=== PATIENT | female | born 1985 | race African-American/Black ===

== ENCOUNTER 2021-03-01 18:17 | Emergency (ER) | payer OTHER ==
[~2021-03-01] VITALS: Ht 157.5 cm; Wt 61.2 kg
[2021-03-01 18:37] VITALS: BP 107/74
[2021-03-01] MEDS ORDERED: IPRATROPIUM BROM 0.5 MG/2.5ML INH SOL NEB ONE (19:45)
[2021-03-01] MEDS ORDERED: ALBUTEROL SULF 2.5 MG/0.5ML(0.5%) NEB SOLN NEB ONE (19:45)
[2021-03-01] MEDS ORDERED: methylPREDNISolone SOD SUCC 125 MG/2 ML VL IM ONE (20:15)
== END 2021-03-01 20:55 | disposition home or self-care (01) ==
LOC: ER 18:20
DX: J45.909 Unspecified asthma, uncomplicated (principal); J06.9 Acute upper respiratory infection, unspecified
CPT/HCPCS: 71045; 81025; 94640; 96372; 99283; J2930; J7644